=== PATIENT | male | born 1995 | race Caucasian/White ===

== ENCOUNTER 2016-12-13 23:30 | Emergency (ER) | payer BC ==
[2016-12-14 00:24] LABS: BASOPHIL % 0.4 % (0-2); PLATELET COUNT 268 x10^3mcL (130-400)
[2016-12-14 00:37] LABS: CALCIUM 8.1 mg/dL (8.5-10.1); CARBON DIOXIDE 29.2 mmol/L (21-32); CHLORIDE SERUM 102 mmol/L (98-107); CREATININE SERUM 0.9 mg/dL (0.7-1.3); GFR1 > 60 mL/min; GLUCOSE SERUM 140 mg/dL (74-106); POTASSIUM SERUM 4.3 mmol/L (3.5-5.1); SODIUM SERUM 138 mmol/L (136-145)
[2016-12-14 00:53] LABS: ALBUMIN 3.7 g/dL (3.4-5.0); ALKALINE PHOSPHATASE 138 U/L (46-116); AMYLASE 57 U/L (25-115); BILIRUBIN TOTAL 0.9 mg/dL (0.20-1.00); LIPASE 74 IU/L (73-393)
[2016-12-14 01:31] LABS: ALT/SGPT 70 U/L (16-63)
[2016-12-14 01:32] LABS: AST/SGOT 59 U/L (15-37)
[2016-12-14 02:38] VITALS: BP 128/74
== END 2016-12-14 02:38 | disposition home or self-care (01) ==
LOC: ED 23:30
PROVIDERS: Emergency Medicine
DX: R10.9 Unspecified abdominal pain (principal); M54.9 Dorsalgia, unspecified; F17.210 Nicotine dependence, cigarettes, uncomplicated; Z71.6 Tobacco abuse counseling
CPT/HCPCS: 99406; J1885; Q0092